=== PATIENT | female | born 1980 | race Caucasian/White ===

== ENCOUNTER 2017-05-18 08:29 | Emergency (ER) | payer OTHER, SELFPAY | END 2017-05-18 09:05 | disposition home or self-care (01) | LOC: SCSER 08:29 | DX: M54.5 Low back pain (principal); F32.9 Major depressive disorder, single episode, unspecified; F17.210 Nicotine dependence, cigarettes, uncomplicated; Z79.899 Other long term (current) drug therapy | CPT/HCPCS: 99283 ==

== ENCOUNTER 2018-10-17 01:58 | Observation (INO) | payer SELFPAY ==
[2018-10-17] MEDS ORDERED: Fentanyl 100 MCG/2 ML VIAL ONE (03:03)
[2018-10-17] MEDS ORDERED: metroNIDAZOLE 500 MG/100 ML BAG ONE (03:57)
--- NOTE | 2018-10-17 04:19 | PDOC.FPRHP ---
- History of Present Illness Chief Complaint: abdominal pain History of Present Illness: 38F with pmh of IBS presents with 4 day hx of increasing abdominal pain and cramps. Pt reports the pains have been worse prior to having BMs, and that they are intermittent. She reports she started to notice blood when she wiped started on the afternoon of 10/16. Reports home temp of 101.7 with subjective fevers and chills, this has been somewhat relieved by motrin. No hx of colonoscopy, grandmother was diagnosed with colon cancer in her 50s. ED Course: zoamelia, 2L NS - Allergies/Adverse Reactions Allergies Allergy/AdvReac Type Severity Reaction Status Date / Time amoxicillin [From Augmentin] Allergy Verified 10/17/18 05:50 clavulanic acid Allergy Verified 10/17/18 05:50 [From Augmentin] oxycodone [From Percocet] Allergy Verified 10/17/18 05:50 propoxyphene Allergy Verified 10/17/18 05:50 [From Darvocet-N] Sulfa (Sulfonamide Allergy Verified 10/17/18 05:50 Antibiotics) - Home Medications Medication Instructions Recorded Confirmed Type ALPRAZolam [Xanax] 0.5 mg PO Q4H PRN 10/17/18 10/17/18 History Dicyclomine [Bentyl] 20 mg PO QID PRN 10/17/18 10/17/18 History Sertraline HCl 100 mg PO HS 10/17/18 10/17/18 History - History PMHx: IBS, Depression/Anxiety, hypothyroidism (not requiring levothyroxine currently) PSHx: dasha, c section, hysterectomy FHx: colon cancer in grandmother, DM, leukemia Social: social drinking, no tobacco, no drugs ALLERGY: augmentin, sulfa, percocet CODE: FULL - Review of Systems General: reports: fever/chills. denies: fatigue Eyes: denies: eye pain, vision changes ENT: denies: nasal congestion, rhinorrhea Respiratory: denies: cough, shortness of breath Cardiovascular: denies: chest pain, palpitation Gastrointestinal: reports: nausea, vomiting (non bloody), abdominal pain, GI bleeding (lower) Genitourinary: denies: incontinence, dysuria Skin: denies: rashes, lesions Musculoskeletal: denies: tenderness, stiffness Neurological: denies: syncope, seizure Psychological: denies: anxiety, depression - Vital signs BP: 119/66, Pulse: 78, Resp: 17 (Non-Labored), Temp: 99 (Oral), Pain: 3, O2 sat : 97 on Room Air, Time: 10/17/2018 02:13. weight: 113kg - Physical Exam Constitutional: NAD, awake, alert and oriented HEENT: EOMI, grossly normal vision, grossly normal hearing Neck: supple, trachea midline Chest: no-tender to palpation Heart: RRR, normal S1/S2 Lungs: CTAB, no respiratory distress Abdomen: soft, other (diffuse abdominal TTP, no peritoneal signs) Musculoskeletal: normal structure, normal tone Neurological: no focal deficit, normal sensation Skin: good turgor, capillary refill <2 seconds Heme/Lymphatic: no purpura, no petechia Psychiatric: normal mood and affect, good judgment and insight FMR H&P: A/P - Problem List (1) Colitis Current Visit: Yes Status: Acute Code(s): K52.9 - NONINFECTIVE GASTROENTERITIS AND COLITIS, UNSPECIFIED (2) Depressed Current Visit: Yes Status: Acute Code(s): F32.9 - MAJOR DEPRESSIVE DISORDER , SINGLE EPISODE, UNSPECIFIED (3) Anxiety Current Visit: Yes Status: Acute Code(s): F41.9 - ANXIETY DISORDER, UNSPECIFIED (4) IBS (irritable bowel syndrome) Current Visit: Yes Status: Acute (5) Hypothyroid Current Visit: Yes Status: Acute Code(s): E03.9 - HYPOTHYROIDISM, UNSPECIFIED - Plan Hemmorhagic colitis 2/2 IBD vs. infectious etiology A- CT abdomen done in outside ER shows R hemicolon colitis of infectious or IBS etiology. Reports hx of fever at home but aftebrile in ED. Hx of IBS but hemmorhagic for 1 day now. GI consulted from ED (recs appreciated), originally had plans for outpt but pt had bright red blood in stool with clots while in ED. Pt will benefit from obs and GI mgmt inpt. P- start flagyl per GI recs -LR 150ml/hr -will have day team notify GI that pt stayed in hospital after hemmorhage and to f/u on consult -NPO pending GI recs -stool studies pending IBS -home meds after diet is added Depression/Anxiety -home meds after diet is added hypothyroid -pt not requiring levothyroxine, f/u outpt CODE: FULL FMR H&P: Upper Level - Pertinent history 38 yr old female with PMH of presumed IBS and anxiety who presents for bloody diarrhea. She has had 3 days of perisstent crampy abdominal pain. Reports a stabbing like sensation that comes in waves. She also reports a fever up to 101 at home. She has been able to eat a little. She has drank some fluids. She has taken immodium without much relief. - Pertinent findings Gen: No acute distress, lying in bed Heart: RRR, no M/R/G Lungs: CTAB, no W/R/r Abd: mildly tender to palpation, Normal active BS in all 4 quadrants Ext: no edema in BLE. Neuro: no focal deficits - Plan Date/Time: 10/17/18 2224 I, [Gladis Simpson], have evaluated this patient and agree with findings/plan as outlined by tech intern resident. Pertinent changes/additions are listed here. Right hemicolon colitis -likely 2/2 IBS vs IBD vs infectious cause -started on flagyl and cipro in ER -pending stool studies -consult GI -IV fluids. Anxiety -restart home meds. Addendum - Attending - Attending Attestation Date/Time: 10/17/18 5835 I personally evaluated the patient and discussed the management with Dr. Chapa. I agree with the History, Examination, Assessment and Plan documented above with any addition or exceptions noted below. The patient presented with a 4 day history of abdominal pain and cramping that she noted was coming in waves. CT showed colitis. Pt had bloody bowel movement in the ER and was subsequently admitted. She was treated with cipro and flagyl. GI is being consulted.
[2018-10-17] MEDS ORDERED: Ondansetron PF 4 MG/2 ML Vial IVP PRN (05:55)
[2018-10-17 06:36] VITALS: BMI 43.7
--- NOTE | 2018-10-17 07:31 | PDOC.FM ---
- Subjective Subjective: No overnight events. Nausea has resolved. Having abdominal pain this AM but received tylenol and it has helped. Currently NPO until GI sees her. - Objective MAR Reviewed: Yes Vital Signs & Weight: Vital Signs (12 hours) Temp Pulse Resp BP Pulse Ox 10/17/18 05:30 98.3 F 64 16 109/59 L 96 Weight Weight 119.204 kg I&O: 10/16/18 10/17/18 10/18/18 06:59 06:59 06:59 Intake Total 0 Output Total 0 Balance 0 Phys Exam - Physical Examination Constitutional: NAD HEENT: moist MMs Neck: supple Respiratory: no wheezing, clear to auscultation bilateral Cardiovascular: RRR, no significant murmur Gastrointestinal: soft, positive bowel sounds Musculoskeletal: no edema Neurological: moves all 4 limbs Psychiatric: normal affect, A&O x 3 Skin: no rash Dx/Plan (1) Anxiety Code(s): F41.9 - ANXIETY DISORDER, UNSPECIFIED Status: Acute (2) Colitis Code(s): K52.9 - NONINFECTIVE GASTROENTERITIS AND COLITIS, UNSPECIFIED Status : Acute (3) Depressed Code(s): F32.9 - MAJOR DEPRESSIVE DISORDER, SINGLE EPISODE, UNSPECIFIED Status : Acute (4) Hypothyroid Code(s): E03.9 - HYPOTHYROIDISM, UNSPECIFIED Status: Acute (5) IBS (irritable bowel syndrome) Status: Acute - Plan Plan: 38yo female with pmh of IBD, anxiety/depression admitted for colitis Hemorrhagic colitis - CT abdomen: R hemicolon colitis of infectious or IBD etiology. Fever at home. - GI consulted - Continue Flagyl per GI recs - LR @150ml/hr - FOBT positive - NPO pending GI recs - Stool studies pending IBS - Continue home meds once no longer NPO Depression/Anxiety - Continue home meds once no longer NPO Hypothyroid Code Status: FULL DVT ppx: SCDs PCP: Dr Horton Addendum - Attending - Attending Attestation Date/Time: 10/17/18 7439 I personally evaluated the patient and discussed the management with Dr. Bermeo. I agree with the History, Examination, Assessment and Plan documented above with any addition or exceptions noted below. Pt states tylenol helped. Continue IV fluids and antibiotics. Awaiting GI recs.
[2018-10-17] MEDS: Lactated Ringer's 1,000 ML IV SCH ×3 (09:05→20:00)
[2018-10-17] MEDS ORDERED: Acetaminophen 500 MG TAB PO SCH (09:15)
[2018-10-17] MEDS ORDERED: Ketorolac Tromethamine 30 MG/ML VIAL IVP SCH (13:30)
[2018-10-17] MEDS: metroNIDAZOLE 500 MG in Premix Bag 1 BAG IVPB SCH ×2 (16:36→23:10)
--- NOTE | 2018-10-17 23:25 | CON ---
DATE OF CONSULTATION: 10/17/2018 REASON FOR CONSULT: Bloody diarrhea. HISTORY OF PRESENT ILLNESS: Ms. Lozano is a pleasant 38-year-old female, who came to the hospital yesterday for diarrhea and cramping. She reports that Tuesday, she became ill with acute onset of diarrhea. There was little bit of vomiting, but not much. She had severe cramping in her mid abdomen and right side and was going to the bathroom about every hour. After a while, she noticed a little bit of blood dripping the bowl. She felt this was from going to the bathroom so much. Yesterday, she was going to go in to see her PCP, Dr. Horton, but there was no openings available and so, she went to the emergency room nurse. She described similar symptoms and documented diarrhea. They were concerned about possible inflammatory bowel disease as she has been having history of diarrhea in postprandial fashion ever since her gallbladder was removed, but she states that she has never had diarrhea like this, and never had cramping to this degree. Additionally, with these symptoms, she had vomiting and subjective fevers, decreased urine output. Imodium helped some, but did not resolve her symptoms. PAST MEDICAL HISTORY: Some history of anxiety. PAST SURGICAL HISTORY: Cholecystectomy in 2014, section in 2007, hysterectomy in the past as well. SOCIAL HISTORY: Rarely drinks. Does not use drugs. Takes care of the kids at home. FAMILY HISTORY: No history of inflammatory bowel disease or GI malignancies. ALLERGIES: AUGMENTIN, DARVOCET, PERCOCET, AND SULFA DRUGS. CURRENT MEDICATIONS: At home, Bentyl and Zoloft. Present medications here: Flagyl. She is on Cipro that apparently has been discontinued. She is on Toradol that has been discontinued, lactated Ringer 150. REVIEW OF SYSTEMS: Denies any rashes, nausea, or arthralgias. She has never had aphthous ulcers or erosions. She denies any improvement in prior chronic symptoms with low carb diet and gluten free diet. PHYSICAL EXAMINATION: VITAL SIGNS: She has been afebrile since admission. Temperature is 98, pulse 66, blood pressure 118/85. LUNGS: Clear. HEART: Regular rhythm. ABDOMEN: Soft, mildly tender. There is no rebound. There is no guarding. Bowel sounds are positive. EXTREMITIES: No clubbing, cyanosis, or edema. SKIN: Good turgor. Oropharynx shows no lesions. LABORATORY STUDIES: White count 9.5, hemoglobin 13.8, and platelet count 144. Comprehensive metabolic profile normal. TSH normal. Cortisol 9, back in 2014. H pylori serology 2013, positive. Parasite screen negative for Giardia, Cryptosporidium. Negative for shiga toxins. Lactoferrin positive. Occult blood positive. Stool culture either is not done or is pending, and I cannot tell from lab results section. IMAGING: CAT scan showed some thickening of the ascending and transverse colon suspicious for colitis, infectious versus inflammatory bowel disease. ASSESSMENT: This is a 38-year-old female, who had acute onset of vomiting and diarrhea with fever and that occurred multiple times on Tuesday and then on Tuesday began to see blood with stool, ultimately severe cramps and pain. She went to go see her primary doctor ended up in the emergency room. This is an acute diarrheal illness that is likely either infectious or ischemic. I do not think this is inflammatory bowel disease as she does not have any chronic features of bloody diarrhea to suggest infective bowel disease nor does she have any signs of anemia of chronic inflammation or malnutrition. I suspect that her diarrhea after meals that she has had ever since her gallbladder is out post cholecystectomy diarrhea and later in the outpatient setting, this can be treated with Colestid at bedtime or with fiber or low-fat diet but as bad as she has had it, probably she will need some Colestid at bedtime that will make her feel a lot better. RECOMMENDATIONS: Continue IV fluids. I would place her on a low-fat diet. I would restart the Cipro since it has already been started and Shiga toxin studies have been negative. This would be more likely to help her than the Flagyl well. If she is doing well, I think she can go home in the next 24 to 48 hours as long as she can maintain hydration. If she would have continued bleeding or clinical deep palpitation, we could always consider colonoscopy but I think at this point in time, I would hold off on that as the risks outweigh any benefits that will be derived as there is no symptoms of chronic colitis, it is all acute. Job ID: [id number]
[2018-10-18] MEDS ORDERED: Acetaminophen 325 MG TAB PO PRN (00:51)
[2018-10-18] MEDS: Lactated Ringer's 1,000 ML IV SCH ×2 (00:56→08:30)
[2018-10-18] MEDS: metroNIDAZOLE 500 MG in Premix Bag 1 BAG IVPB SCH (05:53)
[2018-10-18 06:50] LABS: Mean Corpuscular HGB CONC 33.1 g/dL (32.0-36.0); Mean Corpuscular Volume 93.4 fL (78.0-98.0); Mean Platelet Volume 9.7 fL (7.4-10.4); Platelet Count 131 thou/uL (130-400); RBC Distribution Width 12.6 % (11.5-14.5); Red Blood Cell (RBC) Count 4.21 mill/uL (4.20-5.40); White Blood Cell (WBC) Count 4.7 thou/uL (4.8-10.8)
[2018-10-18 07:09] LABS: Anion Gap 10 mmol/L (10-20); BUN (Urea Nitrogen) 4 mg/dL (7.0-18.7); Calc. Creatinine Clearance 215 mL/min (70-130); Calcium 8.5 mg/dL (7.8-10.44); Carbon Dioxide 25 mmol/L (22-29); Chloride 108 mmol/L (98-107); Estimated GFR-MDRD Greater than 90; Glucose 87 mg/dL (70-105); Potassium 3.4 mmol/L (3.5-5.1); Sodium 140 mmol/L (136-145)
--- NOTE | 2018-10-18 07:30 | PDOC.FM ---
- Subjective Subjective: Continues to have abdominal discomfort and diarrhea. Reports incontinence of stool. No fever, chills. No overnight events. Able to tolerate liquids but continues to have anorexia. - Objective MAR Reviewed: Yes Vital Signs & Weight: Vital Signs (12 hours) Temp Pulse Resp BP Pulse Ox 10/18/18 03:55 97.6 F 57 L 16 119/67 96 10/17/18 21:31 98.2 F 73 16 116/76 98 Weight Admit Weight 119.204 kg Weight 119.204 kg I&O: 10/17/18 10/18/18 10/19/18 06:59 06:59 06:59 Intake Total 0 1208.5 Output Total 0 Balance 0 1208.5 Result Diagrams: 10/18/18 06:16 10/18/18 06:16 Phys Exam - Physical Examination Constitutional: NAD HEENT: moist MMs Neck: supple Respiratory: no wheezing, clear to auscultation bilateral Cardiovascular: RRR, no significant murmur Gastrointestinal: soft, positive bowel sounds mild epigastric tenderness. No rebound or rigidity Musculoskeletal: no edema Neurological: moves all 4 limbs Psychiatric: normal affect, A&O x 3 Skin: no rash Dx/Plan (1) Anxiety Code(s): F41.9 - ANXIETY DISORDER, UNSPECIFIED Status: Acute (2) Colitis Code(s): K52.9 - NONINFECTIVE GASTROENTERITIS AND COLITIS, UNSPECIFIED Status : Acute (3) Depressed Code(s): F32.9 - MAJOR DEPRESSIVE DISORDER, SINGLE EPISODE, UNSPECIFIED Status : Acute (4) Hypothyroid Code(s): E03.9 - HYPOTHYROIDISM, UNSPECIFIED Status: Acute (5) IBS (irritable bowel syndrome) Status: Acute - Plan Plan: 38yo female with pmh of IBD, anxiety/depression admitted for colitis Hemorrhagic colitis - CT abdomen: R hemicolon colitis of infectious or IBD etiology. Fever at home. - LR @150ml/hr - FOBT positive - GI consulted, apprec recs - Starting Levaquin - Stool studies negative. Positive lactoferrin - Full liquid diet, fat restricted. Chronic diarrhea likely related to dasha. GI recommended Colestid qHS IBS - Continue home meds Depression/Anxiety - Continue home meds Hypothyroid Code Status: FULL DVT ppx: SCDs PCP: Dr Horton Addendum - Attending - Attending Attestation Date/Time: 10/18/18 0119 I personally evaluated the patient and discussed the management with Dr. Bermeo. I agree with the History, Examination, Assessment and Plan documented above with any addition or exceptions noted below. The patient had an allergic reaction to the levaquin with red streaking up her arm and she was itching this morning. It has been stopped and the rash went away. The patient states her chest feels heavy and she is anxious. She has also been told multiple things by different nurses and doctors regarding whether her symptoms are viral or bacterial. We had a long discussion regarding treatment plan and imaging. We will continue her on flagyl and omnicef. She was feeling much better at the end of the discussion and had no shortness of breath. Will see if she tolerates lunch and likely discharge home.
[2018-10-18 07:31] LABS: Band 17 % (5-11); Eosinophils 5 % (0-10); Lymphocytes 25 % (21-51); MDiff Complete? YES; Monocytes 8 % (0-10); Neutrophil 45 % (42-75); RBC Morphology Normal
[2018-10-18] MEDS ORDERED: ALPRAZolam 0.5 MG TAB PO PRN (07:35)
[2018-10-18] MEDS ORDERED: Dicyclomine 20 MG TAB PO PRN (07:35)
[2018-10-18 11:50] VITALS: BP 105/58; TEMP 98.3
--- NOTE | 2018-10-18 15:34 | PRG ---
DATE OF SERVICE: 10/18/2018 SUBJECTIVE: Ms. Lozano is feeling much better. She has no further diarrhea. She actually ate lunch without problems. She has had no bleeding. She did have a reaction to the Levaquin infusion with rash and bradycardia. Interestingly, she was able to tolerate ciprofloxacin previously with no issues. OBJECTIVE: VITAL SIGNS: Temperature is 98, pulse is 51 to 73, blood pressure is 105/58. LUNGS: Clear. HEART: Regular rate and rhythm without clicks or murmurs. ABDOMEN: Nontender. LABORATORY DATA: White count 4.7, hemoglobin 13, bands 17, platelet count 131. Sodium 140, potassium 3.4, BUN and creatinine are 4 and 0.6. ASSESSMENT: Acute diarrheal illness on top of chronic issues with postprandial diarrhea ever since her cholecystectomy. I suspect she has had an acute gastritis, probably on top of the postcholecystectomy diarrhea, which has been chronic for a period. The issue of the bleeding is unclear. This may have been related to dehydration and mild ischemia, or it could have been related to an enteroinvasive bacterial colitis. In any event, she is improving. RECOMMENDATIONS: 1. Five more days of antibiotics. 2. I think she can start Colestid in a week at bedtime for postprandial diarrhea, which is likely postcholecystectomy diarrhea. 3. The patient wants to follow up in the office. I am going to arrange that for a week or two. Job ID: [id number]
[2018-10-18] MEDS ORDERED: Cefdinir 300 MG CAP PO SCH (21:00)
--- NOTE | 2018-10-19 10:17 | DIS ---
DATE OF ADMISSION: 10/17/2018 DATE OF DISCHARGE: 10/18/2018 RESIDENT: Diana Bermeo, PGY-1. ADMITTING ATTENDING: Elidia Horton MD. DISCHARGE ATTENDING: Elidia Horton MD. CONSULT: None. PROCEDURES: None. PRIMARY DIAGNOSIS: Hemorrhagic colitis. SECONDARY DIAGNOSES: 1. Irritable bowel syndrome. 2. Depression, anxiety. 3. Hypothyroidism. DISCHARGE MEDICATIONS: 1. Tylenol 650 mg q.6 hours p.r.n. 2. Xanax 0.5 mg q.4 hours p.r.n. 3. Cefdinir 300 mg b.i.d. for 6 days. 4. Colestid 2 g p.o. at bedtime. 5. Bentyl 20 mg q.i.d. 6. Sertraline 100 mg at bedtime. HISTORY OF PRESENT ILLNESS/HOSPITAL COURSE: Ms. Lozano is a 38-year-old female with a past medical history of IBS, who presents with a 4-day history of abdominal pain and cramps as well as bright red blood per rectum on 10/16. Reported home temperature of 101.7. No history of colonoscopy. Has a grandmother diagnosed with colon cancer in her 50s. GI was consulted from the ED, who recommended starting Flagyl. Before the patient was discharged from an outside hospital ED, the patient had an episode of bloody diarrhea and it was decided the patient to be admitted. In the ED, she received Zofran and 2 L normal saline. The patient did not have a leukocytosis. Blood pressure 119/66, pulse 78, temperature 99. Abdominal exam is notable for diffuse abdominal pain to palpation with no rebound or rigidity. She was started on Flagyl and LR at 150 mL/h, made n.p.o. pending GI recommendations and stool studies were negative with the exception of a positive lactoferrin. GI suspected her diarrhea after meal has been chronic secondary to postcholecystectomy diarrhea and recommended starting Colestid at bedtime with a low-fat high-fiber diet. With the more acute hemorrhagic colitis possibly being infectious or ischemic, recommended increasing diet as tolerated and starting Cipro in addition to the Flagyl. She was actually started on Levaquin and had an immediate reaction when it was given IV; hives, itching, and feeling "terrible." Therefore, Levaquin was stopped and she was discharged on cefdinir in addition to the Flagyl. She is able to tolerate regular diet without vomiting. Recommended fat-restricted diet in regard to her IBS, anxiety, depression, and hypothyroidism. These were controlled on home medication. DISPOSITION: Stable. DISCHARGE INSTRUCTIONS: 1. Location: Home. 2. Diet: Fat restricted high-fiber. 3. Activity: No restrictions. 4. Follow up with Dr. Horton within 3 to 7 days. Job ID: [id number]
[2018-10-22 18:07] LABS: Norovirus GI Negative (Negative); Norovirus GII Negative (Negative)
== END 2018-10-18 15:29 | disposition home or self-care (01) ==
LOC: ERS 01:58 → 2SW 03:47
PROVIDERS: ADMIT Family Medicine; ATTEND Family Medicine
DX: K58.0 Irritable bowel syndrome with diarrhea (principal); E03.9 Hypothyroidism, unspecified; F32.9 Major depressive disorder, single episode, unspecified; F41.9 Anxiety disorder, unspecified; Z79.899 Other long term (current) drug therapy; Z88.0 Allergy status to penicillin; Z88.2 Allergy status to sulfonamides; Z88.5 Allergy status to narcotic agent; Z88.8 Allergy status to other drugs, medicaments and biological substances
CPT/HCPCS: 36415; 80048; 83630; 85025; 87045; 87046; 87328; 87329; 87449; 87798; 87899; 96361; 96365; 96366; 96372; 96375; 96376; G0378; J0500; J0744; J1885; J1956; J2405; J3010